=== PATIENT | female | born 1970 | race Caucasian/White ===

== ENCOUNTER 2018-01-08 17:35 | Emergency (ER) | payer SELFPAY ==
[2018-01-08 17:35] VITALS: BP 195/121; PULSE 85; RESP 15; TEMP 36.9; O2SAT 98; BMI 24.7
[2018-01-08 17:38] VITALS: BP 195/121; PULSE 80; RESP 16; O2SAT 98
--- NOTE | 2018-01-08 17:41 | EKG12_ITS ---
Test Reason : CP Blood Pressure : / mmHG Vent. Rate : 081 BPM Atrial Rate : 081 BPM P-R Int : 150 ms QRS Dur : 072 ms QT Int : 350 ms P-R-T Axes : 045 010 045 degrees QTc Int : 406 ms Normal sinus rhythm Normal ECG Confirmed by LILIBETH AGUILAR ([id number]), subeditor DEVON SPAULDING ([id number]) on 01/13/2018 1:50:56 PM Referred By: Confirmed By:LILIBETH AGUILAR
--- NOTE | 2018-01-08 17:53 | RAD_ITS ---
STUDY: X-RAY - LEFT SHOULDER REASON FOR EXAM: Female, 47 years old. Left shoulder pain TECHNIQUE: 2 view(s) of the shoulder. COMPARISON: None. FINDINGS: There is mild degenerative arthrosis of the glenohumeral articulation. Mild degenerative narrowing of the acromioclavicular joint. Normal acromion. Normal humeral head and visualized proximal humerus. The soft tissue structures are unremarkable. There is no demonstrated fracture. Normal visualized pulmonary apex. RAD/Shoulder min 2 Views IMPRESSION: Normally located left shoulder without fracture, osteolytic or blastic bone lesion. Mild degenerative changes of the AC joint and glenohumeral joint. Electronically Signed: Maty Doan MD at 18:26 EST , Service support ,
[2018-01-08] MEDS: LORazepam 1 MG Tablet PO (17:58)
[2018-01-08] MEDS: Naproxen 500 MG Tablet PO (17:58)
--- NOTE | 2018-01-08 18:03 | RAD_ITS ---
STUDY: X-RAY - CERVICAL SPINE REASON FOR EXAM: Female, 47 years old. Neck and shoulder pain. TECHNIQUE: 3 view(s) of the cervical spine were obtained. COMPARISON: None FINDINGS: Normal anterior atlantoaxial articulation. Normal odontoid process. There is straightening of the normal cervical lordosis. Normal vertebral bodies and endplates. Degenerative disc narrowing, spondylitic endplate changes at C5-6 and C6-7. Uncovertebral arthrosis at C4-5 and C5-6. Posterior articulations are normally located. The soft tissue structures are unremarkable. RAD/Cerv Spine 2 or 3 Views IMPRESSION: Straightening of the cervical spine with otherwise normal alignment. Negative for acute fracture of the cervical spine. Degenerative disc narrowing and spondylitic endplate changes at C5-6 and C6-7. Uncovertebral arthrosis at C4-5 and C5-6. Electronically Signed: Maty Doan MD at 18:24 EST , Service support ,
--- NOTE | 2018-01-08 18:21 | CT_ITS ---
STUDY: CTA CHEST REASON FOR EXAM: Female, 47 years old. Chest, right shoulder and neck pain. RADIATION DOSAGE (If Supplied By Facility): CTDIvol = ( 18.98 ) mGy, DLP = ( 488.43 ) mGycm TECHNIQUE: The examination was performed with the intravenous administration of 75 ml of Isovue 370 contrast material. Post-processing of the angiographic images was performed, with multiplanar reformation and 3D reconstruction. Individualized dose optimization techniques were used for this CT. COMPARISON: Prior chest CT exam of May 28, 2017 FINDINGS: Normal enhancement of the main pulmonary artery and right and left pulmonary arteries. Normal enhancement of the bilateral peripheral pulmonary arteries. There is no demonstrated pulmonary embolism. There is atherosclerotic calcification of the aortic arch with tortuosity. There is no demonstrated aortic dissection. Diameter of the ascending aorta is 3.4 cm. Left ventricular hypertrophy with a normal cardiac size. Coronary calcifications. Normal mediastinum. Normal hilar regions. Normal visualized trachea and bronchi. The lungs are well expanded. Minimal posterior atelectatic changes. Normal pleura. Normal chest wall structures. Mild degenerative changes of the thoracic spine. Status post cholecystectomy. CT/CTA Chest W/WO Contrast IMPRESSION: Negative for pulmonary embolus. Mild atherosclerotic changes of the thoracic aorta. Negative for aneurysm or dissection. Left ventricular hypertrophy. Coronary calcifications. Negative for pericardial effusion. Minimal posterior atelectatic changes bilaterally without consolidation, focal atelectasis or pleural effusion. Negative for mediastinal or hilar abnormality. No acute bone findings. Status post cholecystectomy. Electronically Signed: Maty Doan MD at 19:17 EST , Service support ,
[2018-01-08] MEDS: Ondansetron 4 MG/2 ML Vial IV (18:35)
[2018-01-08 18:36] LABS: Absolute Lymphocyte Count 3.24 X10^3/ul (0.83-4.51); Absolute Neutrophil Count 4.9 X10^3/uL (2.0-7.7); Basophil# 0.03 X10^3/uL; Basophil% 0.3 % (0-1); Eosinophil# 0.14 X10^3/uL; Eosinophils% 1.6 % (0-5); Hematocrit 46.3 % (37-47); Hemoglobin 15.8 g/dl (12.0-15.0); Lymphocyte # 3.24 X10^3/ul (4.0); Lymphocyte % 37.2 % (19-41); Mean Corp Hgb Conc 34.1 g/gl (32-36); Mean Corpuscular Hgb 30.9 pg (27.0-32.0); Mean Corpuscular Volume 90.6 fL (81-99); Mean Platelet Vol. 9.6 fl (6.2-12.0); Monocyte# 0.41 X10^3/uL; Monocyte% 4.7 % (0-10); Neutrophil # 4.89 X10^3/uL (2.7-7.7); Neutrophil % 56.2 % (47-70); POSITIVE COUNT NO; POSITIVE DIFFERENTIAL NO; POSITIVE MORPHOLOGY NO; Platelet Count 261 K/mm3 (150-450); RBC Distribution Width CV 12.4 % (11.6-14.6); Red Blood Count 5.11 M/mm3 (4.2-5.4); White Blood Count 8.7 K/mm3 (4.4-11.0)
[2018-01-08 18:39] LABS: International Normalized Ratio 0.9; Prothrombin Time (Protime)PT. 12.2 SECONDS (11.7-14.9)
[2018-01-08 18:50] LABS: Anion Gap 7 (5-15); BUN 9 mg/dL (7-18); BUN/Creat Ratio 10.7 RATIO (10-20); Calcium,Total 8.6 mg/dL (8.5-10.1); Chloride 103 mmol/L (98-107); Creatinine, Serum 0.84 mg/dL (0.55-1.02); EST Glomerular Filtration Rate 77 mL/min (>60); Est Glom Filt Rate - Afr Amer 93 mL/min (>60); Glucose 114 mg/dL (74-106); Potassium 4.4 mmol/L (3.5-5.1); Sodium Level 137 mmol/L (136-145)
[2018-01-08 19:21] VITALS: BP 162/102; PULSE 78; RESP 24; O2SAT 98
--- NOTE | 2018-01-08 19:44 | ED.DCSUM_ITS ---
- ER Visit Summary Date of Service: 01/08/18 Chief Complaint: Left neck and shoulder pain History of Present Illness: The patient is a 47 F who presents with left neck and shoulder pain. This was sudden onset just prior to arrival. She describes it as stabbing. It radiates into her upper arm and posterior chest over the shoulder blade. This is worse with movement. Currently complains of severe pain. She denies any anterior chest pain or shortness of breath. No fever nausea vomiting diarrhea. No history of prior similar symptoms. She does have a history of depression and anxiety. Physical Examination: Blood pressure 195/121 heart rate 80 respiratory rate 16 pulse ox 98% on room air Moist mucous membranes Heart regular rate and rhythm Lungs are clear Abdomen soft 2+ equal radial pulses Patient does have some tenderness along the left paraspinal cervical musculature she has significant pain with attempts at abduction of the shoulder. Test Results: EKG shows normal sinus rhythm at a rate of 81. CBC BMP unremarkable troponin normal INR normal. CT of the chest shows no pulmonary embolism no aneurysm or dissection. Emergency Department Course and Treatment: Initially I felt this was most likely due to a musculoskeletal etiology. She was initially given Ativan as she was very anxious as well as naproxen for pain. Her cervical x-rays and shoulder x-rays are essentially unremarkable except for some degenerative changes. Remained hypertensive and complaining of severe pain. This raise concern for possible process such as aortic dissection. She was sent for a CT of the chest which shows no pulmonary embolism no aortic aneurysm or dissection and laboratory studies were normal. Therefore I do believe this is most likely due to a musculoskeletal etiology. She was given prescriptions for naproxen and Flexeril. She understands to return for new or worsening symptoms. She was instructed on specific signs and symptoms to monitor for. She was discharged. Treatment Plan: [] Disposition: Discharge Impression: Left neck shoulder muscle spasm This note was generated with [employer] dictation software. It may contain incorrect words, spelling, and punctuation that were not noted in review of the chart prior to signing ED Disposition - Plan for ED Patient: Chief Complaint: Chest Pain Referrals: Abbi Johnston MD [Primary Care Provider] -
--- NOTE | 2018-01-08 19:47 | ED.DEP ---
ED Disposition - Plan for ED Patient: Chief Complaint: Chest Pain Instructions: ED Spasm Muscle Prescriptions: Naproxen [Naprosyn] 500 mg PO BID #20 tab Cyclobenzaprine [Flexeril] 10 mg PO TID PRN #20 tab PRN Reason: Muscle Spasm Referrals: Abbi Johnston MD [Primary Care Provider] -
[2018-01-08 19:57] VITALS: BP 124/81; PULSE 79; RESP 19; O2SAT 98
== END 2018-01-08 19:57 | disposition home or self-care (01) ==
LOC: ED 18:54
PROVIDERS: Emergency Provider Emergency Medicine; Family Provider Family Medicine; PCP Family Medicine
DX: M62.838 Other muscle spasm (principal); I10 Essential (primary) hypertension; F32.9 Major depressive disorder, single episode, unspecified; F41.9 Anxiety disorder, unspecified; Z72.0 Tobacco use; Z79.899 Other long term (current) drug therapy
CPT/HCPCS: 71275; 72040; 73030; 80048; 84484; 85025; 85610; 93005; 96374; 96375; 99285; J7030; Q9967; A4216; J2405

== ENCOUNTER 2018-03-10 10:44 | Emergency (ER) | payer SELFPAY ==
[2018-03-10 10:45] VITALS: BP 150/102; PULSE 83; RESP 19; TEMP 36.7; O2SAT 100; BMI 25.2
--- NOTE | 2018-03-10 11:07 | ED.DCSUM_ITS ---
- ER Visit Summary Date of Service: 03/10/18 Chief Complaint: Right ankle injury History of Present Illness: The patient is a 47 F presenting with right ankle injury. Patient states she was walking her dog and stepped on uneven ground. She twisted her ankle. She did not fall completely to the ground. She complains of persistent pain in the right ankle. No other complaints. Physical Examination: Vitals are stable. Patient is afebrile. Alert no acute distress. HEENT exam is unremarkable. Lungs are clear and equal bilaterally. Heart is regular rate and rhythm. Extremities right lateral ankle tenderness, no Achilles tendon tenderness. No proximal fibular tenderness. Skin is warm and dry. No focal neurologic deficit. Remainder of exam is unremarkable. Emergency Department Course and Treatment: Ice pack was applied. X-ray right foot and ankle show no acute process. She is given an Aircast. She declines crutches. Advised to ice and elevate and use NSAIDs for pain. Advised to follow-up with her primary care physician. Advised return ED for worsening complaints. Disposition: Discharge home Impression: Right ankle sprain This note was generated with [employer] dictation software. It may contain incorrect words, spelling, and punctuation that were not noted in review of the chart prior to signing ED Disposition - Plan for ED Patient: Chief Complaint: Lower Extremity Injury Referrals: Abbi Johnston MD [Primary Care Provider] -
--- NOTE | 2018-03-10 11:15 | RAD_ITS ---
STUDY: X-RAY - RIGHT ANKLE REASON FOR EXAM: Female, 47 years old. Stepped wrong and felt pain. TECHNIQUE: 3 view(s) of the ankle. COMPARISON: None. FINDINGS: Normal visualized distal tibia and fibula. Normal medial and lateral malleoli. Normal tibiotalar articulation and ankle mortise. The visualized subtalar, talonavicular, calcaneocuboid and tarsal articulations are normal. The soft tissue structures are unremarkable. RAD/Ankle min 3 Views IMPRESSION: No fracture or dislocation Electronically Signed: Dariusz Lam MD at 11:39 EDT Tel , Service support ,
--- NOTE | 2018-03-10 11:15 | RAD_ITS ---
STUDY: X-RAY - RIGHT FOOT CLINICAL: Female, 47 years old. Stepped wrong and felt pain. TECHNIQUE: 3 view(s) of the foot. COMPARISON: None. FINDINGS: There is a large plantar calcaneal spur. Normal visualized subtalar, talonavicular, calcaneocuboid, tarsal and tarsometatarsal articulations. Normal metatarsi. There is degenerative arthrosis of the metatarsophalangeal joint of the hallux . Normal tibial and fibular sesamoid bones. Normal interphalangeal joint of the great toe. Normal phalanges of the great toe. Normal second through fifth metatarsophalangeal joints. Normal interphalangeal joints and phalanges of the lesser toes. The soft tissue structures are unremarkable. RAD/Foot min 3 Views IMPRESSION: No fracture or dislocation Electronically Signed: Dariusz Lam MD at 11:34 EDT Tel , Service support ,
--- NOTE | 2018-03-10 11:48 | ED.DEP ---
ED Disposition - Plan for ED Patient: Chief Complaint: Lower Extremity Injury Instructions: ED Sprain Ankle W X Ray Referrals: Abbi Johnston MD [Primary Care Provider] -
[2018-03-10 12:10] VITALS: BP 137/99; PULSE 78; RESP 16; O2SAT 99
== END 2018-03-10 12:11 | disposition home or self-care (01) ==
PROVIDERS: Emergency Provider Emergency Medicine; Family Provider Family Medicine; PCP Family Medicine
DX: S93.401A Sprain of unspecified ligament of right ankle, initial encounter (principal); X50.1XXA Overexertion from prolonged static or awkward postures, initial encounter; Y93.K1 Activity, walking an animal; Y92.9 Unspecified place or not applicable; Y99.9 Unspecified external cause status; I10 Essential (primary) hypertension; F32.9 Major depressive disorder, single episode, unspecified; Z72.0 Tobacco use; Z79.899 Other long term (current) drug therapy
CPT/HCPCS: 73610; 73630; 99283

== ENCOUNTER 2019-02-26 05:50 | Emergency (ER) | payer MEDICAID, SELFPAY ==
[2019-02-26 05:52] VITALS: BP 189/108; PULSE 82; RESP 16; TEMP 36.4; O2SAT 98; BMI 29.4
--- NOTE | 2019-02-26 05:59 | ED.VIS.GEN ---
History of Present Illness Chief Complaint: Other, Pain/Inj Informant: Patient Narrative: She stated over the last 2 days she has had sore lymph nodes behind her left ear. They are tender to touch. She is never had this before. Denies any other symptoms. She is been using [id number] with no relief of discomfort. She denies any respiratory symptoms. She did have cervical lymph nodes remotely and never got the workup. They went away on their own. No fevers or chills. No pain in her ear. No sore throat. Comes in for further evaluation. Past Medical History - Allergies and Home Meds Allergies/Adverse Reactions: Allergies codeine Allergy (Verified 02/26/19 05:56) Other cortisone Allergy (Verified 02/26/19 05:56) Swelling tramadol HCl [From Ultram] Allergy (Verified 02/26/19 05:56) Hives Primary Care Physician: NOT,DEFINED [Primary Care Provider] - Prior records reviewed: Yes Past Medical History: - - Arthritis Surgical History: noncontributory Lives: Spouse/ Significant Other Smoking Status: Current every day smoker Alcohol: None Drugs: None Review of Systems General: Denies: Chills, Fever, Sweats Eyes: Denies: Visual changes - bilaterally, Diplopia ENT: Denies: Rhinorrhea, Sore throat Cardiovascular: Denies: Chest pain, Palpitations Respiratory: Denies: Dyspnea, Cough, Dyspnea on exertion Gastrointestinal: Denies: Abdominal pain, Nausea, Vomiting, Diarrhea, Melena, Hematochezia Genitourinary: Denies: Dysuria, Hematuria, Frequency Musculoskeletal: Denies: Back pain, Extremity Pain Skin: Denies: Rash, Wounds Neurological: Denies: Headache, Weakness, Numbness Hematologic: Reports: Lymphadenopathy - Left posterior septal Physical Exam Vital Signs/Narrative: Vital Signs Temp Pulse Resp BP Pulse Ox 02/26/19 05:52 97.6 F L 82 16 189/108 H 98 General: Well nourished, Well developed, No Acute Distress Head: Normocephalic, Atraumatic, Tenderness - Left posterior occipital lymph node with mild tenderness x2. No redness. Eyes: Perrl, EOMI ENT: Moist mucous membranes, No rhinorrhea Neck: Supple, Nontender Cardiovascular: Regular rate, Regular rhythm, No murmurs Respiratory: No distress, CTA bilaterally, Chest nontender Abdomen: Soft, Nontender, Nondistended, Normal bowel sounds Back: Nontender, Normal Inspection Extremities: Nontender, No edema Skin: Normal color, No rash Neurological: Alert, Oriented x3, Cranial nerves II-XII grossly intact, Normal Strength, Normal Sensation Psychological: Normal affect, Normal Mood Diagnostic/Tx/Re-eval - Medical Decision Making Patient given dose of Augmentin for lymphadenopathy lymphadenitis behind her left ear. She will continue [id number] and follow-up as an outpatient return if she worsens. ED Disposition - Plan for ED Patient: Diagnosis: Lymphadenitis Instructions: ED Lymphangitis Prescriptions: Amox/Clavulanate Tablet [Augmentin Tablet] 875 mg PO Q12H #20 tab Referrals: NOT,DEFINED [Primary Care Provider] - Maikel Mock DO [NON CLINICAL AFFILIATE] -
--- NOTE | 2019-02-26 06:02 | ED.DCSUM_ITS ---
History of Present Illness Chief Complaint: Other, Pain/Inj Informant: Patient Narrative: She stated over the last 2 days she has had sore lymph nodes behind her left ear. They are tender to touch. She is never had this before. Denies any other symptoms. She is been using [id number] with no relief of discomfort. She denies any respiratory symptoms. She did have cervical lymph nodes remotely and never got the workup. They went away on their own. No fevers or chills. No pain in her ear. No sore throat. Comes in for further evaluation. Past Medical History - Allergies and Home Meds Allergies/Adverse Reactions: Allergies codeine Allergy (Verified 02/26/19 05:56) Other cortisone Allergy (Verified 02/26/19 05:56) Swelling tramadol HCl [From Ultram] Allergy (Verified 02/26/19 05:56) Hives Primary Care Physician: NOT,DEFINED [Primary Care Provider] - Prior records reviewed: Yes Past Medical History: - - Arthritis Surgical History: noncontributory Lives: Spouse/ Significant Other Smoking Status: Current every day smoker Alcohol: None Drugs: None Review of Systems General: Denies: Chills, Fever, Sweats Eyes: Denies: Visual changes - bilaterally, Diplopia ENT: Denies: Rhinorrhea, Sore throat Cardiovascular: Denies: Chest pain, Palpitations Respiratory: Denies: Dyspnea, Cough, Dyspnea on exertion Gastrointestinal: Denies: Abdominal pain, Nausea, Vomiting, Diarrhea, Melena, Hematochezia Genitourinary: Denies: Dysuria, Hematuria, Frequency Musculoskeletal: Denies: Back pain, Extremity Pain Skin: Denies: Rash, Wounds Neurological: Denies: Headache, Weakness, Numbness Hematologic: Reports: Lymphadenopathy - Left posterior septal Physical Exam Vital Signs/Narrative: Vital Signs Temp Pulse Resp BP Pulse Ox 02/26/19 05:52 97.6 F L 82 16 189/108 H 98 General: Well nourished, Well developed, No Acute Distress Head: Normocephalic, Atraumatic, Tenderness - Left posterior occipital lymph node with mild tenderness x2. No redness. Eyes: Perrl, EOMI ENT: Moist mucous membranes, No rhinorrhea Neck: Supple, Nontender Cardiovascular: Regular rate, Regular rhythm, No murmurs Respiratory: No distress, CTA bilaterally, Chest nontender Abdomen: Soft, Nontender, Nondistended, Normal bowel sounds Back: Nontender, Normal Inspection Extremities: Nontender, No edema Skin: Normal color, No rash Neurological: Alert, Oriented x3, Cranial nerves II-XII grossly intact, Normal Strength, Normal Sensation Psychological: Normal affect, Normal Mood Diagnostic/Tx/Re-eval - Medical Decision Making Patient given dose of Augmentin for lymphadenopathy lymphadenitis behind her left ear. She will continue [id number] and follow-up as an outpatient return if she worsens. ED Disposition - Plan for ED Patient: Diagnosis: Lymphadenitis Instructions: ED Lymphangitis Prescriptions: Amox/Clavulanate Tablet [Augmentin Tablet] 875 mg PO Q12H #20 tab Referrals: NOT,DEFINED [Primary Care Provider] - Maikel Mock DO [NON CLINICAL AFFILIATE] -
[2019-02-26] MEDS: Amox/Clavulanate 875 MG Tablet PO (06:06)
[2019-02-26 06:28] VITALS: BP 180/89; PULSE 80; RESP 16; O2SAT 99
== END 2019-02-26 06:29 | disposition home or self-care (01) ==
PROVIDERS: Emergency Provider Emergency Medicine
DX: I88.9 Nonspecific lymphadenitis, unspecified (principal); M19.90 Unspecified osteoarthritis, unspecified site; F17.200 Nicotine dependence, unspecified, uncomplicated; Z79.899 Other long term (current) drug therapy
CPT/HCPCS: 99282

== ENCOUNTER 2020-06-30 14:30 | Emergency (ER) | payer SELFPAY ==
[2020-06-30 14:31] VITALS: BP 195/113; PULSE 87; RESP 17; TEMP 37.3; O2SAT 97; BMI 27.4
--- NOTE | 2020-06-30 14:48 | VDLE_ITS ---
Reason For Study: SWELLING RIGHT LEFT GSV is normal. CFV is compressible, spontaneous, phasic, CFV is compressible, spontaneous, phasic, competent, and demonstrates normal competent and demonstrates normal augmentation. augmentation. FV is compressible, spontaneous, phasic, competent and demonstrates normal augmentation. POP V is compressible, spontaneous, phasic, competent and demonstrates normal augmentation. T/P Trunk is compressible. PTV is compressible. RT PerV is compressible. Procedure Exam performed portable in ED. A preliminary report was called and/or faxed to ED. Interpretation Summary Deep veins of the right lower extremity are patent and compressible segmentally. There is no evidence of right lower extremity deep vein thrombosis. Valvular competence appears intact within the proximal deep venous system on the right . The right great saphenous vein appears patent and compressible segmentally. Ordering Physician: Deandre Rivera Performed By: Edwige Veloz, HETAL, RVT
--- NOTE | 2020-06-30 15:15 | ED.DCSUM_ITS ---
History of Present Illness Chief Complaint: Edema Informant: Patient Narrative: Patient presents the emergency department with right leg swelling. Patient states that she chronically has some leg swelling but over the past several days the right leg has become significantly more swollen than the left. She denies any fevers or trauma to the leg. She denies any change in her diet. She thought initially that the extra swelling would go away but it has not. She has had several knee surgeries on the right. She notes that the leg is very sore and wonders if it is due to the swelling. No history of recent travel or surgeries. There is no history of prior DVT PE. Past Medical History - Allergies and Home Meds Allergies/Adverse Reactions: Allergies codeine Allergy (Verified 06/30/20 14:31) Other cortisone Allergy (Verified 06/30/20 14:31) Swelling tramadol HCl [From Ultram] Allergy (Verified 06/30/20 14:31) Hives Primary Care Physician: Care Physician,No Primary [Primary Care Provider] - Surgical History: noncontributory Smoking Status: Former smoker Review of Systems General: Denies: Chills, Fever, Sweats Eyes: Denies: Visual changes - bilaterally, Diplopia ENT: Denies: Rhinorrhea, Sore throat Cardiovascular: Denies: Chest pain, Palpitations Respiratory: Denies: Dyspnea, Cough, Dyspnea on exertion Gastrointestinal: Denies: Abdominal pain, Nausea, Vomiting, Diarrhea, Melena, Hematochezia Genitourinary: Denies: Dysuria, Hematuria, Frequency Musculoskeletal: Reports: Swelling, Extremity Pain. Denies: Back pain Skin: Denies: Rash, Wounds Neurological: Denies: Headache, Weakness, Numbness Physical Exam Vital Signs/Narrative: Vital Signs Temp Pulse Resp BP Pulse Ox 06/30/20 14:31 99.2 F H 87 17 195/113 H 97 Inital Vital Signs reviewed: Yes General: Well nourished, Well developed, No Acute Distress Head: Normocephalic, Atraumatic Eyes: Perrl, EOMI ENT: Moist mucous membranes, No rhinorrhea Neck: Supple, Nontender Cardiovascular: Regular rate, Regular rhythm, No murmurs Respiratory: No distress, CTA bilaterally, Chest nontender Abdomen: Soft, Nontender, Nondistended, Normal bowel sounds Back: Nontender, Normal Inspection Extremities: Edema - Right greater than left lower extremity swelling to the level of the knee. No palpable cords. Mild tenderness to palpation diffusely of the lower right leg. Normal color. Skin: Normal color, No rash Neurological: Alert, Oriented x3, Cranial nerves II-XII grossly intact, Normal Strength, Normal Sensation Psychological: Normal affect, Normal Mood Diagnostic/Tx/Re-eval Duplex ultrasound was negative for DVT. - Medical Decision Making Duplex ultrasound was negative for DVT. Renal and liver functions are normal. Patient was placed on Lasix. I am going to encourage her to do compression hose. She needs to reestablish primary care as she has recently returned back to the area. She is to monitor for any signs of infection. ED Disposition - Plan for ED Patient: Disposition: Home or Assisted Living Diagnosis: Lymphedema, Right leg pain Instructions: ED Lymphedema Prescriptions: Furosemide [Lasix] 40 mg PO DAILY #7 tab Prescription Printed Additional Instructions: I would encourage you to use compression stockings if you are able to get them o n. If not an Tomas wrap would also work well. Monitor salt intake If while taking Lasix you start to feel muscle cramps please take a potassium supplement or bananas. Reestablish primary care.
[2020-06-30 15:29] LABS: ALB/GLOB Ratio 0.8 RATIO (0.9-2.4); AST(SGOT) 10 U/L (15-37); Alanine Aminotransfer ALT/SGPT 12 U/L (13-56); Albumin, Serum 3.3 g/dL (3.2-5.0); Alkaline Phosphatase 90 U/L (45-117); Anion Gap 6 (5-15); BUN 8 mg/dL (7-18); BUN/Creat Ratio 7.9 RATIO (10-20); Calcium,Total 8.3 mg/dL (8.5-10.1); Chloride 107 mmol/L (98-107); Creatinine, Serum 1.01 mg/dL (0.55-1.02); EST Glomerular Filtration Rate 62 mL/min (>60); Est Glom Filt Rate - Afr Amer 75 mL/min (>60); Estimated Creatinine Clearance 71.19 ml/min; Globulin 3.9 g/dL (2.2-4.2); Glucose 120 mg/dL (74-106); Potassium 3.6 mmol/L (3.5-5.1); Protein, Total 7.2 g/dL (6.4-8.2); Sodium Level 140 mmol/L (136-145)
[2020-06-30 15:53] VITALS: BP 138/74; PULSE 79; RESP 15; O2SAT 98
== END 2020-06-30 15:54 | disposition home or self-care (01) ==
LOC: ED 15:49
PROVIDERS: Emergency Provider Emergency Medicine
DX: I89.0 Lymphedema, not elsewhere classified (principal); M79.604 Pain in right leg; Z79.899 Other long term (current) drug therapy; Z87.891 Personal history of nicotine dependence
CPT/HCPCS: 36415; 80053; 93971; 99282

== ENCOUNTER 2021-02-15 11:38 | Emergency (ER) | payer SELFPAY ==
[2021-02-15 11:39] VITALS: BP 199/116; PULSE 91; RESP 16; TEMP 36.1; O2SAT 99; BMI 28.0
--- NOTE | 2021-02-15 12:08 | ED.VIS.GEN ---
History of Present Illness Chief Complaint: Other, Pain/Inj Narrative: Patient is a 50-year-old female who presents with body and joint aches. She states she has chronic aching pain in her knees and hands but over the past few days she has had worse muscle and joint aches. She reports slightly elevated temperature at 99.6. She did take Tylenol and ibuprofen. No cough congestion rhinorrhea chest pain difficulty breathing abdominal pain nausea vomiting diarrhea. No urinary symptoms. At one point she was being evaluated for possible lupus but was lost to follow-up due to loss of insurance. She notes that she was exposed to a neighbor's son who was recently diagnosed with fifth disease Past Medical History - Allergies and Home Meds Allergies/Adverse Reactions: Allergies codeine Allergy (Verified 02/15/21 11:41) Other cortisone Allergy (Verified 02/15/21 11:41) Swelling tramadol HCl [From Ultram] Allergy (Verified 02/15/21 11:41) Hives Primary Care Physician: Care Physician,No Primary [Primary Care Provider] - Past Medical History: None Surgical History: noncontributory Smoking Status: Former smoker Review of Systems All systems negative except as indicated General: Denies: Fever Eyes: Denies: Visual changes - bilaterally ENT: Denies: Bilateral ear pain Cardiovascular: Denies: Chest pain Respiratory: Denies: Dyspnea Gastrointestinal: Denies: Abdominal pain, Nausea, Vomiting, Diarrhea Musculoskeletal: Reports: Myalgias, Arthralgias, Neck pain Skin: Denies: Rash Neurological: Denies: Headache Hematologic: Denies: Easy bruising, Easy bleeding Allergy: Denies: Uticaria Physical Exam Vital Signs/Narrative: Vital Signs Temp Pulse Resp BP Pulse Ox 02/15/21 11:39 97.0 F L 91 16 199/116 H 99 Inital Vital Signs reviewed: Yes General: Well nourished, Well developed Head: Normocephalic Eyes: EOMI ENT: Moist mucous membranes Neck: Supple Cardiovascular: Regular rate, Regular rhythm Respiratory: No distress, CTA bilaterally Abdomen: Soft, Nontender, Nondistended Skin: Normal color. Negative for: No rash Neurological: Alert Psychological: Normal affect Diagnostic/Tx/Re-eval Laboratory Results 02/15/21 02/15/21 12:25 12:25 WBC 9.7 RBC 4.99 Hgb 14.8 Hct 45.3 MCV 90.8 MCH 29.7 MCHC 32.7 RDW Std Deviation 41.0 RDW Coeff of Lai 12.4 Plt Count 281 MPV 9.0 Immature Gran % (Auto) 0.300 Neut % (Auto) 70.6 H Lymph % (Auto) 21.6 [place] % (Auto) 5.8 Eos % (Auto) 1.3 Baso % (Auto) 0.4 Absolute Neuts (auto) 6.8 Absolute Lymphs (auto) 2.08 Nucleated RBC % 0 ESR 45 H Sodium 137 Potassium 3.8 Chloride 108 H Carbon Dioxide 26.0 Anion Gap 3 L BUN 9 Creatinine 0.73 Estim Creat Clear Calc 97.42 Est GFR (MDRD) Af Amer 109 Est GFR (MDRD) Non-Af 90 BUN/Creatinine Ratio 12.3 Glucose 64 L Calcium 8.6 Total Bilirubin 0.20 AST 11 L ALT 13 Alkaline Phosphatase 98 C-React Prot Ext Range 3.98 H Total Protein 7.6 Albumin 3.2 Globulin 4.4 H Albumin/Globulin Ratio 0.7 L - Medical Decision Making Patient was given IV Toradol. On laboratory studies inflammatory markers ESR and CRP are mildly elevated. I suspect this may be related to rheumatoid or autoimmune process. We will treat with a prednisone burst and patient advised to follow-up with her primary care provider. She was advised that she may benefit from a referral to rheumatology. She does understand return for new or worsening symptoms she was advised on signs and symptoms to monitor for. Patient was discharged. ED Disposition - Plan for ED Patient: Disposition: Home or Assisted Living Diagnosis: Polyarthralgia Instructions: ED Arthralgia Prescriptions: predniSONE tablet 60 mg PO DAILY #15 tab Prescription Printed Referrals: Care Physician,No Primary [Primary Care Provider] - Sugar Miller MD [STAFF PHYSICIAN] -
[2021-02-15 12:23] VITALS: BP 177/107; PULSE 79; RESP 18; O2SAT 99
[2021-02-15] MEDS: Ketorolac 30 MG/ML Syringe IV (12:25)
[2021-02-15 12:37] LABS: Erythrocyte Sedimentation Rate 45 mm/hr (0-30)
[2021-02-15 12:38] LABS: Absolute Lymphocyte Count 2.08 X10^3/uL (0.83-4.51); Absolute Neutrophil Count 6.8 X10^3/uL (2.0-7.7); Basophil# 0.04 X10^3/uL; Basophil% 0.4 % (0-1); Eosinophil# 0.13 X10^3/uL; Eosinophils% 1.3 % (0-5); Hematocrit 45.3 % (37-47); Hemoglobin 14.8 g/dL (12.0-15.0); Lymphocyte # 2.08 X10^3/ul (4.0); Lymphocyte % 21.6 % (19-41); Mean Corp Hgb Conc 32.7 g/dL (32-36); Mean Corpuscular Hgb 29.7 pg (27.0-32.0); Mean Corpuscular Volume 90.8 fL (81-99); Monocyte# 0.56 X10^3/uL; Monocyte% 5.8 % (0-10); NRBC Flagged by Analyzer 0 % (0-5); Neutrophil # 6.81 X10^3/uL (2.7-7.7); Neutrophil % 70.6 % (47-70); Platelet Count 281 K/mm3 (150-450); RBC Distribution Width CV 12.4 % (11.6-14.6); Red Blood Count 4.99 M/mm3 (4.2-5.4); White Blood Count 9.7 K/mm3 (4.4-11.0)
[2021-02-15 12:49] LABS: ALB/GLOB Ratio 0.7 RATIO (0.9-2.4); AST(SGOT) 11 U/L (15-37); Alanine Aminotransfer ALT/SGPT 13 U/L (13-56); Albumin, Serum 3.2 g/dL (3.2-5.0); Alkaline Phosphatase 98 U/L (45-117); Anion Gap 3 (5-15); BUN 9 mg/dL (7-18); BUN/Creat Ratio 12.3 RATIO (10-20); CRP 3.98 mg/L (0.0-3.0); Calcium,Total 8.6 mg/dL (8.5-10.1); Chloride 108 mmol/L (98-107); Creatinine, Serum 0.73 mg/dL (0.55-1.02); EST Glomerular Filtration Rate 90 mL/min (>60); Est Glom Filt Rate - Afr Amer 109 mL/min (>60); Estimated Creatinine Clearance 97.42 ml/min; Globulin 4.4 g/dL (2.2-4.2); Glucose 64 mg/dL (74-106); Potassium 3.8 mmol/L (3.5-5.1); Protein, Total 7.6 g/dL (6.4-8.2); Sodium Level 137 mmol/L (136-145)
[2021-02-15 13:35] VITALS: BP 185/96; PULSE 82; RESP 17; O2SAT 96
== END 2021-02-15 13:36 | disposition home or self-care (01) ==
PROVIDERS: Emergency Provider Emergency Medicine
DX: M25.50 Pain in unspecified joint (principal); Z87.891 Personal history of nicotine dependence
CPT/HCPCS: 80053; 85025; 85652; 86140; 96374; 99284

== ENCOUNTER 2025-01-23 15:56 | Emergency (ER) | payer MEDICAID, SELFPAY ==
[2025-01-23 15:57] VITALS: BP 207/126; PULSE 116; RESP 17; TEMP 36.2; O2SAT 98; BMI 29.5
--- NOTE | 2025-01-23 16:35 | CT_ITS ---
EXAM: CT brain without IV contrast CLINICAL HISTORY: Pain, trauma COMPARISON: None TECHNIQUE: Multiple contiguous axial images of the brain were obtained without the administration of intravenous contrast. Two-dimensional coronal and sagittal reformatted images were reconstructed. Low-dose imaging technique was utilized. FINDINGS: No evidence of acute intracranial hemorrhage, midline shift or mass effect. No definite CT evidence of acute territorial cortical infarction. No hydrocephalus. Mild generalized cerebral atrophy. No depressed calvarial fracture. Moderate opacification of the left maxillary sinus, posterior left nasal passage and left ethmoid air cells. Mastoid air cells are clear. CT/Brain/Head without Contrast IMPRESSION: No acute intracranial abnormality. Reading Location: [facility]
--- NOTE | 2025-01-23 16:37 | EDS_ITS ---
HPI History of Present Illness Chief Complaint: Head Injury Informant: patient Narrative Narrative: 54-year-old female sustained an injury to her right head/scalp due to a 2 x 4 that fell from leaning against a wall in their barn that they are redoing, striking her in the head. There was no loss of consciousness. She states the corner of it hit and caused a laceration. It did not hurt at the time but now she has a bad headache. No nausea or vomiting or focal neurologic symptoms. She takes no blood thinning medications. Tetanus Immunization: <5 years PFSH PFS Medical History (Updated 01/23/25 @ 17:[address] Tom Zamorano MD) Hypertension Depression Anxiety Medical History no medical history no medical history Home Medications ?Medication ?Instructions ?Recorded ?Last Taken ?Type hydroxyzine HCl 25 mg tablet 25 mg PO BID PRN PRN anxi ety 01/23/25 Unknown History lisinopril 10 mg tablet 10 mg PO DAILY 01/23/25 Unkn own History Allergy/AdvReac Type Severity Reaction Status Date / Time codeine Allergy Other Verified 01/23/25 15:59 cortisone Allergy Swelling Verified 01/23/25 15:59 tramadol HCl (From Ultram) Allergy Hives Verified 01/23/25 15:59 Surgical History (Updated 01/23/25 @ 16:58 by Asya Johnston) Hx of cholecystectomy Social History Smoking Status: Current every day smoker tobacco type: cigarettes ROS ROS ED Constitutional Constitutional ED: Denies chills or fever(s) Eyes Eyes: Denies blurry vision or change in vision ENT ENT ED: Denies rhinorrhea Cardiovascular Cardiovascular: Denies chest pain Respiratory/Chest Respiratory/Chest: Denies dyspnea Gastrointestinal Gastrointestinal: Denies nausea or vomiting Musculoskeletal Musculoskeletal: Denies back pain or neck pain Integumentary Reports laceration Neurologic Neurologic: Reports headache(s); Denies paresthesias or weakness EXAM Physical Exam Const Vital Signs: 01/23/25 15:57 01/23/25 16:59 01/23/25 16:59 Temperature 97.1 F L Temperature Source Temporal Pulse Rate 116 H 97 Respiratory Rate 17 16 Respiratory Effort Normal Respiratory Depth Normal Respiratory Pattern Normal Blood Pressure 207/126 H 221/129 H Blood Pressure Mean 153 159 Pulse Ox 98 98 Oxygen Delivery Method Room Air Room Air 01/23/25 17:01 Temperature Temperature Source Pulse Rate 100 Respiratory Rate 14 Respiratory Effort Respiratory Depth Respiratory Pattern Blood Pressure 222/125 H Blood Pressure Mean 157 Pulse Ox 97 Oxygen Delivery Method Room Air Positive well nourished and well developed General Appearance ED: well developed HEENT HEENT Narrative: Hematoma with laceration right temporal scalp. Bleeding well-controlled. Laceration 1 cm, partial-thickness, galea not exposed. No active bleeding. trauma and tenderness Eyes PERRL and EOMs intact bilaterally Neck full ROM General: Negative for tenderness Resp normal respiratory effort Back/Spine normal to inspection and no thoracic nor lumbar tenderness Extremity normal to inspection and full ROM Neuro oriented x3, CN's II-XII intact bilaterally, moves all extremities, no focal motor deficits, no sensory deficits noted and gait normal Psych mental status grossly normal and thought process normal Skin Skin Narrative: Laceration right temporal scalp no other rashes or lesions/wounds. PROC Procedures Lacerations Scalp: Length: 1 cm Depth: Skin Shape: Linear Prep: Sterile Conditions and Chlorhexadine (scrubbed) Laceration repair: Lidocaine with epi (topical), Local and Skin sutures (staple) Number of Sutures/[place]: 1 Comment: Tolerated well no complications MDM MDM MDM Narrative Medical decision making narrative: Given that it was the temporal scalp there is a hematoma without crepitance or depression or obvious signs of skull fracture, but her blood pressure is really high and she has a bad headache, I opted to perform a CT of the head to rule intracranial injury. On my interpretation it is negative for acute bleed or skull fracture. Wound very small 1 cm only need 1 staple this was done after pretreatment with L ET, given appropriate discharge instructions. She states she has whitecoat syndrome and her blood pressure is always high when she is at the doctor, she is asymptomatic with regards to this so I advised her have it rechecked in the near future. She is comfortable with that plan. Radiography Diagnostic Testing: Clinical Impression(s) from Imaging Studies Brain CT 01/23/25 16:35 IMPRESSION: No acute intracranial abnormality. Reading Location: [facility] Discharge Plan Triage Chief Complaint: Head Injury ED Provider: Tom Zamorano Dx/Rx/DC Orders Clinical Impression: Laceration of scalp, Closed head injury without concussion, Episode of hypertension Instructions: ED Laceration Scalp Stitches or [place] Prescriptions: No Action lisinopril 10 mg tablet 10 mg PO DAILY hydroxyzine HCl 25 mg tablet 25 mg PO BID PRN PRN (Reason: anxiety) Primary Care Provider: Maddison Parker NP Referrals: Maddison Parker NP, [employer] [Primary Care Provider] - 7 Days for suture removal (Or ER/urgent care) Print Language: Portuguese Disposition Disposition: Home, Self Care
[2025-01-23] MEDS: Lidocaine/Epi/Tetracaine 50 ML 1 APPLIC TOPICAL (16:52)
[2025-01-23 16:59] VITALS: BP 221/129; PULSE 97; RESP 16; O2SAT 98
[2025-01-23 17:01] VITALS: BP 222/125; PULSE 100; RESP 14; O2SAT 97
== END 2025-01-23 17:40 | disposition home or self-care (01) ==
PROVIDERS: Emergency Provider Emergency Medicine; PCP Registered Nurse; Visit Provider Emergency Medicine
DX: S01.01XA Laceration without foreign body of scalp, initial encounter (principal); W22.8XXA Striking against or struck by other objects, initial encounter; Y92.71 Barn as the place of occurrence of the external cause; I10 Essential (primary) hypertension; F17.210 Nicotine dependence, cigarettes, uncomplicated
CPT/HCPCS: 12001; 70450; 99284